=== PATIENT | male | born 1950 | race Caucasian/White ===

== ENCOUNTER 2024-09-26 14:15 | Emergency (ER) | payer MEDICARE, OTHER, SELFPAY ==
--- NOTE | ~2024-09-26 | XR_ITS ---
XR chest 2V DATE: 09/26/2024 14:48 INDICATION: Uncontrolled hypertension TECHNIQUE: PA and lateral views COMPARISON: None FINDINGS: There is mild bibasilar atelectasis and/or scarring. The lungs otherwise appear clear. Normal heart size. No hilar or mediastinal enlargement. Left dual-lead pacemaker with leads overlying right atrium and right ventricle. No pleural effusion, pulmonary vascular congestion or pneumothorax. Degenerative spurring of the thoracic spine. IMPRESSION: Mild bibasilar discoid atelectasis or scarring Left dual-lead pacemaker Reviewed, dictated and finalized at location A.
[2024-09-26 14:19] VITALS: BP 171/107; PULSE 67; RESP 17; TEMP 36.5; O2SAT 98
--- NOTE | 2024-09-26 14:23 | ECG_ITS ---
Test Date: 2024-09-26 14:33:10 Measurements Intervals [place] Rate: 60 P: 160 WV: 191 QRS: -85 QRSD: 197 T: 89 QT: 512 QTc: 512 Interpretive Statements ELECTRONIC ATRIAL PACEMAKER ELECTRONIC VENTRICULAR PACEMAKER BASELINE ARTIFACT- I, II, III, AVR, AVL, AVF NO FURTHER INTERPRETATION IS POSSIBLE ATYPICAL ECG No previous ECG available for comparison Electronically Signed On 09-26-2024 17:11:42 CDT by Gray Resendiz D.O.
--- NOTE | 2024-09-26 14:27 | ED.RECABL ---
HPI - Recheck/Abnormal Lab/Rx General Chief Complaint: Recheck/Abnormal Lab/Rx Stated Complaint: htn Time Seen by Provider: 09/26/24 14:27 Source: patient and family Limitations: no limitations History of Present Illness HPI narrative: 74 YEARS OLD WHITE MALE CAME TO THE EMERGENCY ROOM WITH HIS BECAUSE OF ELEVATED BLOOD PRESSURE, ASYMPTOMATIC. PATIENT IS TELLING ME THAT HIS CHECK HIS BLOOD PRESSURE ALMOST DAILY AND IS BLOOD PRESSURE ALL WAS UNCONTROLLED. CURRENTLY ON LISINOPRIL 20 MG ONCE A DAY, USED TO BE ON ATENOLOL AND SOMETIMES ON METOPROLOL BUT HIS BLOOD PRESSURE GOES DOWN AND GET DIZZINESS AND LIGHTHEADEDNESS. THIS BEEN GOING FOR MONTHS. IS TELLING ME THAT HIS BLOOD PRESSURE WAS 210/110 AT HOME. ON ARRIVAL TO THE ED 171/107. PATIENT OTHERWISE IS VERY ANXIOUS RESTLESS, THE PATIENT IS CALM AND DENYING ANY SYMPTOMS. HISTORY OF HYPERTENSION, HYPERLIPIDEMIA, 14 CORONARY STENTS, PACEMAKER, ATRIAL FIBRILLATION ON ELIQUIS, HE DOES NOT SMOKE OR USE DRUGS, DRINKS OCCASIONALLY Related Data Allergies Allergy/AdvReac Type Severity Reaction Status Date / Time No Known Allergies Allergy Verified 09/26/24 14:18 Review of Systems Review of Systems: All systems reviewed & are unremarkable except as noted in HPI and below Exam Narrative: GENERAL APPEARANCE: WELL-DEVELOPED, WELL-NOURISHED SKIN: NORMAL COLOR HEAD: NORMOCEPHALIC, NONTRAUMATIC EYES: CLEAR CONJUNCTIVA ENT: OROPHARYNX NORMAL, EARS NORMAL, NOSE NORMAL NECK: SUPPLE, NONTENDER CHEST AND RESPIRATORY: AIRWAY PATENT, NO RESPIRATORY DISTRESS, NO ACCESSORY MUSCLE USE HEART: REGULAR RATE/RHYTHM ABDOMEN: SOFT, NONTENDER, NO ORGANOMEGALY, QUIET BOWEL SOUNDS VASCULAR: NORMAL PERIPHERAL PULSES, NORMAL CAPILLARY REFILL. MUSCULOSKELETAL: NORMAL RANGE OF MOTION, NONTENDER BACK NEUROLOGIC: ALERT AND ORIENTED ?3, HOSE INSPECTOR AND PATCHER IS NORMAL TESTED, NO GROSS MOTOR DEFICIT Course Vital Signs Vital signs: Vital Signs Temperature 36.5 C 09/26/24 14:19 Pulse Rate 67 09/26/24 14:19 Respiratory Rate 17 09/26/24 14:19 Blood Pressure 171/107 H 09/26/24 14:19 Pulse Oximetry 98 09/26/24 14:19 Temperature 36.5 C 09/26/24 14:19 Pulse Rate 60 09/26/24 15:23 Respiratory Rate 16 09/26/24 15:23 Blood Pressure 126/82 09/26/24 15:23 Pulse Oximetry 94 09/26/24 15:23 MDM - Recheck/Abnormal Lab/Rx MDM Narrative Medical decision making narrative: PATIENT CAME WITH ELEVATED BLOOD PRESSURE, HISTORY OF LABILE HYPERTENSION PATIENT IS ASYMPTOMATIC HIS VERY ANXIOUS AND RESTLESS VITAL SIGNS ON ARRIVAL SHOWED BLOOD PRESSURE 171/107, PHYSICAL EXAMINATION IS UNREMARKABLE DIFFERENTIAL DIAGNOSIS ANXIETY, STRESS RELATED SYMPTOMS, LABILE HYPERTENSION. EKG ON ARRIVAL SHOWED ELECTRONIC ATRIAL PACEMAKER, ELECTRONIC VENTRICULAR PACEMAKER, ABNORMAL RHYTHM EKG, NO PREVIOUS EKG AVAILABLE FOR COMPARISON BLOOD WORKUP SHOWED NO SIGNIFICANT ABNORMALITIES CHEST X-RAY SHOWED NO ACUTE ABNORMALITIES PATIENT RECEIVED 0.1 MG CLONIDINE P.O. AND 1 MG OF ATIVAN P.O., CURRENT BLOOD PRESSURE IS 126/82. MY PLAN TO DISCHARGE PATIENT ON CLONIDINE 0.1 MG P.O. EVERY 4 HOUR NEEDED MAXIMUM TWICE A DAY FOR SYSTOLIC BLOOD PRESSURE 160 AND ABOVE. AND CONTINUE LISINOPRIL 20 MG ONCE A DAY. THE PT WAS DISCHARGED TO HOME.THE PT,S CONDITION UPON DISCHARGE WAS FAIR,EDUCATION WAS PROVIDED TO THE PT IN REFERENCE TO THE FINAL IMPRESSION,DISCHARGE STUDY RESULTS,TREATMENT,PROGNOSIS AND NEED FOR FOLLOW UP . Differential Diagnosis Differential diagnosis: Likely other ( ABOVE) Medical Records Attestation: I reviewed the patient's medical records. Lab Data Attestation: I reviewed the patient's lab results. 09/26/24 14:33 09/26/24 14:33 Labs: Lab Results 09/26/24 Range/Units 14:33 WBC 5.1 (4.5-10.0) K/mm3 RBC 4.90 (4.6-6.20) M/mm3 Hgb 15.0 (14.0-18.0) g/dL Hct 43.9 (42.0-52.0) % MCV 89.6 (80-100) fl MCH 30.6 (26-34) pg MCHC 34.2 (32-36) g/dl RDW 13.1 (11.5-14.5) % Plt Count 165 (150-375) k/mm3 MPV 9.1 (7.4-10.4) fl Immature Gran % (Auto) 0.4 (0-0.5) % Neut % (Auto) 60.4 (45.5-73.1) % Lymph % (Auto) 24.2 (18.3-44.2) % Leslie % (Auto) 11.8 H (2.6-8.5) % Eos % (Auto) 2.6 (0-4.4) % Baso % (Auto) 0.6 (0.2-1.2) % Lymph # (Auto) 1.23 (0.9-3.2) K/mm3 Leslie # (Auto) 0.6 (0.1-0.6) K/mm3 Eos # (Auto) 0.1 (0-0.3) K/mm3 Baso # (Auto) 0.0 (0.0-0.1) K/mm3 Abs Immat Gran (auto) 0.02 (0.00-0.031) K/mm3 Absolute Neuts (auto) 3.1 (1.3-6.7) K/mm3 Absolute Nucleated RBC 0.000 (0.0-0.012) K/mm3 Nucleated RBC % 0.0 (0.0-0.2) % PT 14.9 H (11.1-14.7) Seconds INR 1.1 APTT 35.0 (22.3-36.8) Seconds Sodium 139 (137-145) mmol/L Potassium 3.7 (3.4-5.0) mmol/L Chloride 103 (98-107) mmol/L Carbon Dioxide 29 (22-30) mmol/L Anion Gap 7 (4-12) mmol/L BUN 13 (9-20) mg/dL Creatinine 0.90 (0.7-1.3) mg/dL Estim Creat Clear Calc 70 ml/min Estimated GFR > 60 (59 - ) Glucose 96 (65-110) mg/dL Calcium 9.2 (8.4-10.2) mg/dL Total Bilirubin 0.8 (0.2-1.3) mg/dL AST 28 (17-59) U/L ALT 19 (6-50) U/L Alkaline Phosphatase 87 (38-126) U/L Troponin I < 0.012 (0.000-0.034) ng/mL Total Protein 7.0 (6.3-8.2) g/dL Albumin 4.2 (3.5-5.1) g/dL Imaging Data Radiologist's impression: Impressions Chest X-Ray 09/26/24 15:07 IMPRESSION: Mild bibasilar discoid atelectasis or scarring Left dual-lead pacemaker ECG Data EKG #1: Attestation: I personally reviewed and interpreted this ECG as follows: ECG completion date: 09/26/24 Interpretation: ELECTRONIC ATRIAL AND ELECTRONIC VENTRICULAR, ABNORMAL RHYTHM EKG, NO OLD EKG AVAILABLE FOR COMPARISON Critical Care Time Critical Care Time Critical Care Time: No Discharge Plan Discharge Clinical Impression: Labile hypertension Patient Disposition: Home, Self-Care Condition: Improved Instructions: Hypertension (ED) Additional Instructions: RETURN IF SYMPTOMS ARE WORSENING , CALL YOUR FAMILY PHYSICIAN FOR APPOINTMENT, TAKE TYLENOL NEEDED FOR ACHES AND PAIN, CONTINUE HOME MEDICATIONS. Prescriptions: New clonidine HCl 0.1 mg tablet 0.1 mg PO Q4-5H PRN (Reason: hypertensive emergency) Qty: 30 0RF Rx Instructions: TAKE 1 TABLETS NEEDED FOR SYSTOLIC BLOOD PRESSURE 160 OR ABOVE EVERY 4 HOURS MAXIMUM TWICE A DAY. Follow-up/Referrals: PHYSICIAN NOT ON STAFF,NONSTAFF [Primary Care Provider] -
[2024-09-26 14:31] VITALS: BP 186/113; PULSE 60; RESP 18; O2SAT 96
[2024-09-26 14:35] VITALS: PULSE 60
[2024-09-26 14:38] LABS: Basophils Percent Auto 0.6 % (0.2-1.2); Eosinophils Absolute Auto 0.1 K/mm3 (0-0.3); Eosinophils Percent Auto 2.6 % (0-4.4); Hematocrit 43.9 % (42.0-52.0); Immature Granulocyte Absolute 0.02 K/mm3 (0.00-0.031); Immature Granulocyte Percent A 0.4 % (0-0.5); Lymphocytes Absolute Auto 1.23 K/mm3 (0.9-3.2); Lymphocytes Percent Auto 24.2 % (18.3-44.2); Mean Corpuscular HGB Conc 34.2 g/dl (32-36); Mean Corpuscular Hemoglobin 30.6 pg (26-34); Mean Corpuscular Volume 89.6 fl (80-100); Mean Platelet Volume 9.1 fl (7.4-10.4); Monocytes Absolute Auto 0.6 K/mm3 (0.1-0.6); Monocytes Percent Auto 11.8 % (2.6-8.5); Neutrophils Absolute Auto 3.1 K/mm3 (1.3-6.7); Neutrophils Percent Auto 60.4 % (45.5-73.1); Platelet Count Result 165 k/mm3 (150-375); Red Cell Distribution Width 13.1 % (11.5-14.5); White Blood Count 5.1 K/mm3 (4.5-10.0)
[2024-09-26] MEDS: cloNIDine HCL 0.1 MG TABLET PO (14:40)
[2024-09-26 14:50] LABS: Alanine Aminotransferase 19 U/L (6-50); Albumin Level 4.2 g/dL (3.5-5.1); Alkaline Phosphatase 87 U/L (38-126); Anion Gap 7 mmol/L (4-12); Aspartate Amino Transferase 28 U/L (17-59); Bilirubin,Total 0.8 mg/dL (0.2-1.3); Blood Urea Nitrogen 13 mg/dL (9-20); Calcium 9.2 mg/dL (8.4-10.2); Carbon Dioxide 29 mmol/L (22-30); Chloride 103 mmol/L (98-107); Estimated CRCL calculation 70 ml/min; Estimated Glomerular Filt Rate > 60; Glucose 96 mg/dL (65-110); Potassium 3.7 mmol/L (3.4-5.0); Sodium 139 mmol/L (137-145)
[2024-09-26 14:51] LABS: INR 1.1; Prothrombin Time 14.9 Seconds (11.1-14.7)
[2024-09-26 15:02] LABS: Troponin I < 0.012 ng/mL (0.000-0.034)
[2024-09-26 15:23] VITALS: BP 126/82; PULSE 60; RESP 16; O2SAT 94
== END 2024-09-26 15:54 | disposition home or self-care (01) ==
PROVIDERS: Emergency Provider Emergency Medicine
DX: I10 Essential (primary) hypertension (principal); I48.91 Unspecified atrial fibrillation; E78.5 Hyperlipidemia, unspecified; Z95.0 Presence of cardiac pacemaker; Z95.5 Presence of coronary angioplasty implant and graft; Z79.01 Long term (current) use of anticoagulants; Z79.899 Other long term (current) drug therapy
CPT/HCPCS: 36415; 71046; 80053; 84484; 85025; 85610; 85730; 93005; 99284; A9270